=== PATIENT | female | born 1985 | race Native Hawaiian/Other Pacific Islander ===

== ENCOUNTER 2016-08-30 15:30 | Outpatient (CLI) | payer OTHER | END 2016-08-30 20:03 | disposition home or self-care (01) | LOC: CT 15:30 | DX: R10.84 Generalized abdominal pain (principal); R11.0 Nausea; R50.9 Fever, unspecified | CPT/HCPCS: Q9963 ==

== ENCOUNTER 2017-09-12 09:38 | Outpatient (CLI) | payer BC | END 2017-09-12 21:47 | disposition home or self-care (01) | LOC: MAMMO 09:38 | DX: N60.11 Diffuse cystic mastopathy of right breast (principal); N60.12 Diffuse cystic mastopathy of left breast ==

== ENCOUNTER 2020-08-01 08:04 | Outpatient (CLI) | payer BC | END 2020-08-01 21:46 | disposition home or self-care (01) | LOC: LABW 08:04 | PROVIDERS: ATTEND Internal Medicine Pulmonary Disease | DX: J45.40 Moderate persistent asthma, uncomplicated (principal); J30.1 Allergic rhinitis due to pollen; K21.9 Gastro-esophageal reflux disease without esophagitis; R53.83 Other fatigue; R25.1 Tremor, unspecified | CPT/HCPCS: 82103; 82104; 82785; 84439; 84443; 84481; 86606 ==